=== PATIENT | female | born 1955 | race Caucasian/White ===

== ENCOUNTER → 2016-11-01 | Day surgery (SDC) | payer OTHER ==
[~2016-11-01] MED LIST: ACETAMINOPHEN 1000 MG/100 ML 100 ML IV ONE; ACETAMINOPHEN/HYDROcodone 325 MG/5 MG TAB ONE; BACITRACIN IM FOR SOLN 50,000 UNIT VIAL ONE; BUPIVACAINE/EPINEPHRINE 0.25% 50 ML VIAL ONE; GENTAMICIN SULFATE 80 MG/2 ML VIAL ONE; KETOROLAC TROMETHAMINE 30 MG/ML (IVP) VIAL IV PUSH ONE; LIDOCAINE 1%/EPINEPHrine 1:200,000 PF SOLN 30 ML VIAL ONE; MEPERIDINE HCL 25 MG/ML VIAL ONE; MIDAZOLAM HCL 2 MG/2 ML VIAL ONE; MONT10TA2 PO; MORPHINE SULFATE 4 MG/ML INJ ONE; ONDANSETRON HCL 4 MG/2 ML VIAL IV PUSH ONE; OYST500T71 PO; PROPOFOL 200 MG/20 ML AMP IV ONE; SODIUM CHLORIDE 0.9% 20 ML VIAL ONE; TAB-TAB PO; VALA500 PO; VITA500T83 OR; VITAMIN PO; VITAMINB PO; ceFAZolin INJ 1,000 MG VIAL ONE
--- NOTE | 2016-11-01 14:57 | TN ---
cc: SAEID CHEN M.D. DATE OF SURGERY: 11/01/2016 PREOPERATIVE DIAGNOSIS Deflation of bilateral breast implants, wishes to replace. POSTOPERATIVE DIAGNOSIS Deflation of bilateral breast implants, wishes to replace. PROCEDURE 1. Removal, replace of implants 2. Bilateral capsulectomies 3. Bilateral capsulorrhaphies 4. re-augmentation Michael del real SRN volume 310, serial number on the right breast implant is [id number] and serial number of the left breast implant [id number] PROCEDURE IN DETAIL: She was properly consented, marked properly anesthetized the skin was sterilized with Betadine solution and sterile draping was applied. I proceeded to perform through the previous inframammary incision, the 15 blade incision and findings of the capsule with a significant thickness in the retro plantar level due to that I proceeded to perform the proper capsulectomies and thereafter capsulorrhaphies. Due to the fact that the patient is now anatomy has been reset and the thickness is very thin made the decision to elevate the pectoris major muscle and thereafter to put this into the level of the breast tissue. After that I re-augmented breast tissue. After proper irrigation the pocket with triple antibiotic solution. Through a separate stab wound a breast 10 mm Reliavac was brought and secured in place. The contra side was approached exactly in the same manner. Overall the patient tolerated the procedure well and the wounds were closed in multiple 2-0 Monocryl monitor suture layers and Monocryl in the breast parenchyma, dermis and Subcu. Mastisol Steri-Strips and a snug brassiere was applied thereafter. Overall the patient the procedure well. She was awakened, extubated in the operating room transferred back to postanesthesia care unit in stable condition. At the complication of the procedure the patient looked fairly well. MD ZACHARIAH Can/vitor /2:32 PM /2:50 PM JASWINDER
== END | disposition home or self-care (01) ==
LOC: ESDC 10:38
PROVIDERS: ATTEND Plastic Surgery
DX: Z41.1 Encounter for cosmetic surgery (principal)
CPT/HCPCS: 00400; 00402; 19325; 19328; 88305; C1789; J0131; J0690; J1580; J1885; J2175; J2250; J2270; J2405; J3010

== ENCOUNTER → 2017-05-23 | Day surgery (SDC) | payer OTHER ==
[~2017-05-23] MED LIST changes: -BUPIVACAINE/EPINEPHRINE 0.25% 50 ML VIAL ONE; +LACTATED RINGER'S 1000 ML INJ 1,000 ML ONE; -LIDOCAINE 1%/EPINEPHrine 1:200,000 PF SOLN 30 ML VIAL ONE; -MEPERIDINE HCL 25 MG/ML VIAL ONE; -MORPHINE SULFATE 4 MG/ML INJ ONE
--- NOTE | 2017-05-23 10:17 | TN ---
cc: Lonnie Vuong MD DATE OF SURGERY: 05/23/2017 PREOPERATIVE DIAGNOSIS: Unhappiness in breast shape and volume. POSTOPERATIVE DIAGNOSIS: Unhappiness in breast shape and volume. PROCEDURE: Removal and replacement of breast implants. SURGEON: Lonnie Vuong MD NUCLEAR EQUIPMENT TEST ENGINEER: Mercedez Preciado MS4 IMPLANT DATA: Gene Bailey [facility] 325. Serial number on the right breast implant device [id number], and to the left [id number]. PROCEDURE: Through the previous inframammary incision, a dropped incision was carried out fine and the implant was properly removed. Irrigation with triple antibiotic solution took place. Lateral and inferior capsulorrhaphies took place at this point utilizing 0 silk suture in multiple layers in running fashion. Isolation of the skin was done with Tegaderm from the beginning and out of the skin. Introduction of the implant was done utilizing no touch technique and wounds were closed utilizing 2-0 Monocryl suture in the dermis and subcutaneous as well as the capsule. Mastisol and Steri-Strips were applied. The counts were all in exactly the same manner previously described. The patient was awakened, extubated in the operating room after observing dressings and a bra was applied. No complications appreciated. The patient tolerated the procedure well. Lonnie Vuong MD SMZ/DL , 09:55 AM , 10:16 AM
== END | disposition home or self-care (01) ==
LOC: ESDC 07:54
PROVIDERS: ATTEND Plastic Surgery
DX: Z41.1 Encounter for cosmetic surgery (principal)
CPT/HCPCS: 00400; 00402; 19325; 19328; C1789; J0131; J0690; J1580; J1885; J2250; J2405; J3010; J7120